=== PATIENT | male | born 2005 | race Caucasian/White ===

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

== ENCOUNTER 2024-04-15 12:32 | Emergency (ER) | payer OTHER ==
[~2024-04-15] VITALS: Ht 190.5 cm; Wt 158.8 kg
[~2024-04-15 12:32] MED LIST changes: +Cleocin HCl150 MG PO
[2024-04-15 13:17] VITALS: BP 162/103
[2024-04-15] MEDS ORDERED: Clindamycin HC150 MG PO (15:24)
== END 2024-04-15 15:34 | disposition home or self-care (01) ==
LOC: ER 12:32
DX: K04.7 Periapical abscess without sinus (principal); K02.9 Dental caries, unspecified
CPT/HCPCS: 41800; 99282-25